=== PATIENT | female | born 1955 | race Two or more races ===

== ENCOUNTER 2019-08-12 23:12 | Inpatient (IN) | payer OTHER, MEDICAID ==
[~2019-08-12] VITALS: Ht 157.5 cm; Wt 83.6 kg
[~2019-08-12 23:12] MED LIST: AMLO5TAB9 PO; DIVA500T52 PO; HYDR28.45 TP; OLAN10TA3 PO; PANT40TA25 PO
[2019-08-12 23:55] LABS: BASOPHILS % (AUTO) 0.2 % (0.0-2.0); EOSINOPHILS % (AUTO) 0.2 % (1.0-6.0); HEMOGLOBIN 11.9 g/dL (12.0-16.0); LYMPHOCYTES # (AUTO) 2.7 K/uL (1.0-4.8); LYMPHOCYTES % (AUTO) 37.6 % (22.0-44.0); MEAN CORPUSCULAR HEMOGLOBIN 34.2 pg (26.0-34.0); MEAN CORPUSCULAR VOLUME 98 fL (80-100); MONOCYTES # (AUTO) 0.7 K/uL (0.1-1.0); MONOCYTES % (AUTO) 9.5 % (2.0-9.0); NEUTROPHILS # (AUTO) 3.8 K/uL (1.8-7.7); NEUTROPHILS % (AUTO) 52.5 % (40.0-70.0); PLATELET COUNT (AUTO) 194 K/uL (150-450); RED BLOOD CELL COUNT(AUTO) 3.48 MIL/uL (4.00-5.20); RED CELL DISTRIBUTION WIDTH 12.6 % (11.5-14.5)
[2019-08-13 00:17] LABS: ANION GAP 9 mmol/L (8-16); CALCIUM, TOTAL 9.3 mg/dL (8.8-10.5); CARBON DIOXIDE 27 mmol/L (22-29); CHLORIDE 107 mmol/L (98-107); GLOMERULAR FILTR. RATE CALC 27 mL/min (>60); GLUCOSE,RANDOM 105 mg/dL (70-110); SODIUM SERUM 143 mmol/L (136-145); UREA NITROGEN, BLOOD 46 mg/dL (7-18)
[2019-08-13 00:23] LABS: ALANINE AMINOTRANSFERASE 17 U/L (12-78); ALBUMIN 3.9 g/dL (3.4-5.0); ALKALINE PHOSPHATASE 101 U/L (46-116); ASPARTATE AMINOTRANSFERASE 11 U/L (15-37); BILIRUBIN,TOTAL 0.3 mg/dL (0.1-1.0); TOTAL PROTEIN, SERUM 6.9 g/dL (6.4-8.2)
[2019-08-13] MEDS ORDERED: DIVA125SP PO (01:00)
[2019-08-13] MEDS ORDERED: PROP20TA18 PO (01:00)
[2019-08-13] MEDS ORDERED: RISP3 PO (01:00)
[2019-08-13] MEDS ORDERED: DIPH50 PO (01:00)
[2019-08-13] MEDS ORDERED: OLANZapine 5 MG RAPDIS TABLET PO PRN (02:00)
[2019-08-13 03:42] LABS: AMPHET/METH SCREEN,URINE NEGATIVE (NEGATIVE); BARBITURATE SCREEN, URINE NEGATIVE (NEGATIVE); BENZODIAZEPINES SCREEN,URINE NEGATIVE (NEGATIVE); CANNABINOID SCREEN,URINE NEGATIVE (NEGATIVE); COCAINE SCREEN,URINE NEGATIVE (NEGATIVE); METHADONE SCREEN, URINE NEGATIVE (NEGATIVE); OPIATE SCREEN,URINE NEGATIVE (NEGATIVE)
[2019-08-13 03:43] LABS: PHENCYCLIDINE SCREEN,URINE NEGATIVE (NEGATIVE)
[2019-08-13 04:50] LABS: APPEARANCE,URINE CLOUDY (CLEAR); GLUCOSE, URINE (UA) NEGATIVE (NEGATIVE); KETONES,URINE TRACE mg/dL (NEGATIVE); LEUKOCYTE ESTERASE ,URINE MODERATE (NEGATIVE); NITRATE,URINE NEGATIVE (NEGATIVE); OCCULT BLOOD,URINE NEGATIVE (NEGATIVE); PROTEIN,URINE SEE CONFIRM (NEGATIVE); UROBILINOGEN,URINE 0.2 mg/dL (<=1.0)
[2019-08-13 04:53] LABS: BILIRUBIN,URINE PRELIM. POSITIVE (NEGATIVE)
[2019-08-13 05:11] LABS: RBC,URINE 0-2 /HPF (0-2)
[2019-08-13 05:12] LABS: BACTERIA,URINE Rare /HPF (None Seen); CALCIUM OXALATE CRYSTALS,UR Moderate /LPF (None Seen); SQUAMOUS EPITHELIAL CELL,UR Few /LPF (None Seen); SULFOSALICYLIC ACID,URINE 1+ (Negative)
[2019-08-13 06:09] VITALS: BP 124/77
[2019-08-13 08:20] VITALS: BP 100/55
[2019-08-13] MEDS ORDERED: DIVA-78 PO (10:51)
[2019-08-13] MEDS: CEPHALEXIN MONOHYDRATE 500 MG CAPSULE PO SCH ×2 (13:13→16:53)
[2019-08-13] MEDS ORDERED: PROMETHAZINE HCL 25 MG TABLET PO PRN (15:15)
[2019-08-13] MEDS ORDERED: MAGNESIUM HYDROXIDE SUSPENSION 30 ML UDCUP PO PRN (15:15)
[2019-08-13] MEDS ORDERED: HydrOXYzine PAMOATE 50 MG CAPSULE PO PRN (15:15)
[2019-08-13] MEDS ORDERED: MAG HYDROX/AL HYDROX/SIMETH ES 30 ML SUSPENSION UDCUP PO PRN (15:15)
[2019-08-13] MEDS ORDERED: LOPERAMIDE HCL 2 MG CAPSULE PO PRN (15:15)
[2019-08-13] MEDS ORDERED: TUBERCULIN, PURIFIED PROTEIN DERIVATIVE 5 TU/0.1 ML SYRINGE ID ONE (15:15)
[2019-08-13 16:14] VITALS: BP 109/73
[2019-08-13] MEDS: THIAMINE HCL 100 MG TABLET PO SCH (16:53)
[2019-08-13] MEDS ORDERED: OLANZapine 5 MG RAPDIS TABLET PO SCH (21:00)
[2019-08-13] MEDS: DIVALPROEX SODIUM 500 MG ER TABLET PO SCH (21:11)
[2019-08-13] MEDS: GuaiFENesin/D-METHORPHAN [SUGAR-FREE] 200-20MG/10 ML SYRUP UDCUP PO PRN (23:16)
[2019-08-14 00:27] VITALS: BP 116/60
[2019-08-14 08:09] LABS: HEMOGLOBIN A1C 6.5 % (4.5-6.2)
[2019-08-14 08:15] VITALS: BP 122/73
[2019-08-14 08:24] LABS: ALBUMIN 3.4 g/dL (3.4-5.0); BILIRUBIN,TOTAL 0.2 mg/dL (0.1-1.0); CALCIUM, TOTAL 8.7 mg/dL (8.8-10.5); CHOL/HDL RATIO 2.6 (3.9-5.7); FREE T4 (FREE THYROXINE) 1.15 ng/dL (0.76-1.46); POTASSIUM 4.4 mmol/L (3.5-5.1); THYROID STIMULATING HORMONE 0.59 uIU/mL (0.36-3.74); TOTAL PROTEIN, SERUM 6.2 g/dL (6.4-8.2)
[2019-08-14 08:31] LABS: BASOPHILS % (AUTO) 0.3 % (0.0-2.0); EOSINOPHILS % (AUTO) 0.6 % (1.0-6.0); HEMOGLOBIN 12.1 g/dL (12.0-16.0); LYMPHOCYTES % (AUTO) 43.3 % (22.0-44.0); MEAN CORPUSCULAR HEMOGLOBIN 33.9 pg (26.0-34.0); MEAN CORPUSCULAR HGB CONC 34.7 G/dL (31.0-37.0); MEAN CORPUSCULAR VOLUME 98 fL (80-100); MONOCYTES # (AUTO) 0.5 K/uL (0.1-1.0); MONOCYTES % (AUTO) 7.6 % (2.0-9.0); NEUTROPHILS # (AUTO) 3.3 K/uL (1.8-7.7); NEUTROPHILS % (AUTO) 48.2 % (40.0-70.0); PLATELET COUNT (AUTO) 190 K/uL (150-450); RED BLOOD CELL COUNT(AUTO) 3.58 MIL/uL (4.00-5.20); RED CELL DISTRIBUTION WIDTH 12.6 % (11.5-14.5)
[2019-08-14] MEDS: MULTIVITAMINS WITH MINERALS, THERAPEUTIC TABLET PO SCH (08:52)
[2019-08-14] MEDS: FOLIC ACID 1 MG TABLET PO SCH (08:52)
[2019-08-14] MEDS: CEPHALEXIN MONOHYDRATE 500 MG CAPSULE PO SCH ×3 (08:52→16:06)
[2019-08-14] MEDS: THIAMINE HCL 100 MG TABLET PO SCH ×2 (08:52→16:06)
[2019-08-14] MEDS: GuaiFENesin/D-METHORPHAN [SUGAR-FREE] 200-20MG/10 ML SYRUP UDCUP PO PRN (09:26)
[2019-08-14] MEDS: LORazepam 2 MG TABLET PO PRN (11:28)
[2019-08-14 16:06] VITALS: BP 115/83
[2019-08-14] MEDS: DIVALPROEX SODIUM 500 MG ER TABLET PO SCH (20:37)
[2019-08-14] MEDS: OLANZapine 10 MG RAPDIS TABLET PO SCH (20:40)
[2019-08-15] MEDS: ZOLPIDEM TARTRATE 10 MG TABLET PO PRN ×2 (03:00→21:34)
[2019-08-15 04:59] VITALS: BP 112/80
[2019-08-15] MEDS: CEPHALEXIN MONOHYDRATE 500 MG CAPSULE PO SCH ×3 (08:19→16:25)
[2019-08-15] MEDS: THIAMINE HCL 100 MG TABLET PO SCH ×2 (08:19→16:25)
[2019-08-15] MEDS: FOLIC ACID 1 MG TABLET PO SCH (08:19)
[2019-08-15] MEDS: MULTIVITAMINS WITH MINERALS, THERAPEUTIC TABLET PO SCH (08:19)
[2019-08-15 08:21] VITALS: BP 140/68
[2019-08-15] MEDS: GuaiFENesin/D-METHORPHAN [SUGAR-FREE] 200-20MG/10 ML SYRUP UDCUP PO PRN ×2 (08:30→13:20)
[2019-08-15 10:30] VITALS: BP 134/78
[2019-08-15] MEDS: ACETAMINOPHEN 325 MG TABLET PO PRN (14:49)
[2019-08-15 16:06] VITALS: BP 131/88
[2019-08-15] MEDS: OLANZapine 10 MG RAPDIS TABLET PO SCH (20:20)
[2019-08-15] MEDS: DIVALPROEX SODIUM 500 MG ER TABLET PO SCH (20:20)
[2019-08-16 05:00] VITALS: BP 112/73
[2019-08-16 08:05] VITALS: BP 120/82
[2019-08-16] MEDS: THIAMINE HCL 100 MG TABLET PO SCH ×2 (08:12→16:37)
[2019-08-16] MEDS: CEPHALEXIN MONOHYDRATE 500 MG CAPSULE PO SCH ×3 (08:12→16:37)
[2019-08-16] MEDS: MULTIVITAMINS WITH MINERALS, THERAPEUTIC TABLET PO SCH (08:12)
[2019-08-16] MEDS: FOLIC ACID 1 MG TABLET PO SCH (08:12)
[2019-08-16] MEDS: LORazepam 2 MG TABLET PO PRN ×2 (08:19→12:26)
[2019-08-16] MEDS: GuaiFENesin/D-METHORPHAN [SUGAR-FREE] 200-20MG/10 ML SYRUP UDCUP PO PRN (08:19)
[2019-08-16 16:00] VITALS: BP 125/89
[2019-08-16] MEDS: DIVALPROEX SODIUM 500 MG ER TABLET PO SCH (20:10)
[2019-08-16] MEDS: OLANZapine 10 MG RAPDIS TABLET PO SCH (20:11)
[2019-08-17 05:01] VITALS: BP 115/74
[2019-08-17 05:05] VITALS: BP 100/72
[2019-08-17] MEDS: GuaiFENesin/D-METHORPHAN [SUGAR-FREE] 200-20MG/10 ML SYRUP UDCUP PO PRN ×3 (05:36→18:07)
[2019-08-17] MEDS: ACETAMINOPHEN 325 MG TABLET PO PRN (06:42)
[2019-08-17 08:16] VITALS: BP 134/96
[2019-08-17] MEDS: CEPHALEXIN MONOHYDRATE 500 MG CAPSULE PO SCH ×3 (08:26→16:16)
[2019-08-17] MEDS: FOLIC ACID 1 MG TABLET PO SCH (08:26)
[2019-08-17] MEDS: THIAMINE HCL 100 MG TABLET PO SCH ×2 (08:26→16:16)
[2019-08-17] MEDS: MULTIVITAMINS WITH MINERALS, THERAPEUTIC TABLET PO SCH (08:26)
[2019-08-17 16:00] VITALS: BP 148/89
[2019-08-17] MEDS: DIVALPROEX SODIUM 500 MG ER TABLET PO SCH (20:09)
[2019-08-17] MEDS: OLANZapine 10 MG RAPDIS TABLET PO SCH (20:09)
[2019-08-17] MEDS: ATORVASTATIN CALCIUM 10 MG TABLET PO SCH (20:56)
[2019-08-18 04:24] VITALS: BP 128/92
[2019-08-18] MEDS: LEVOTHYROXINE SODIUM 75 MCG TABLET PO SCH (06:46)
[2019-08-18] MEDS: CEPHALEXIN MONOHYDRATE 500 MG CAPSULE PO SCH ×2 (08:01→13:00)
[2019-08-18] MEDS: ENALAPRIL MALEATE 2.5 MG TABLET PO SCH (08:01)
[2019-08-18] MEDS: MULTIVITAMINS WITH MINERALS, THERAPEUTIC TABLET PO SCH (08:02)
[2019-08-18] MEDS: THIAMINE HCL 100 MG TABLET PO SCH ×2 (08:02→16:00)
[2019-08-18] MEDS: HYDROCHLOROTHIAZIDE 25 MG TABLET PO SCH (08:02)
[2019-08-18] MEDS: FOLIC ACID 1 MG TABLET PO SCH (08:02)
[2019-08-18 08:17] VITALS: BP 136/99
[2019-08-18] MEDS: GuaiFENesin/D-METHORPHAN [SUGAR-FREE] 200-20MG/10 ML SYRUP UDCUP PO PRN ×3 (09:26→18:53)
[2019-08-18] MEDS: ACETAMINOPHEN 325 MG TABLET PO PRN (09:26)
[2019-08-18] MEDS: LORazepam 2 MG TABLET PO PRN (15:55)
[2019-08-18 16:08] VITALS: BP 118/75
[2019-08-18] MEDS: ATORVASTATIN CALCIUM 10 MG TABLET PO SCH (20:36)
[2019-08-18] MEDS: DIVALPROEX SODIUM 500 MG ER TABLET PO SCH (20:36)
[2019-08-18] MEDS: ZOLPIDEM TARTRATE 10 MG TABLET PO PRN (20:37)
[2019-08-18] MEDS: OLANZapine 10 MG RAPDIS TABLET PO SCH (20:37)
[2019-08-19 05:10] VITALS: BP 112/68
[2019-08-19] MEDS: LEVOTHYROXINE SODIUM 75 MCG TABLET PO SCH (06:27)
[2019-08-19] MEDS: GuaiFENesin/D-METHORPHAN [SUGAR-FREE] 200-20MG/10 ML SYRUP UDCUP PO PRN ×3 (06:29→20:41)
[2019-08-19 08:24] VITALS: BP 119/73
[2019-08-19] MEDS: THIAMINE HCL 100 MG TABLET PO SCH ×2 (08:41→16:52)
[2019-08-19] MEDS: MULTIVITAMINS WITH MINERALS, THERAPEUTIC TABLET PO SCH (08:42)
[2019-08-19] MEDS: ENALAPRIL MALEATE 2.5 MG TABLET PO SCH (08:42)
[2019-08-19] MEDS: HYDROCHLOROTHIAZIDE 25 MG TABLET PO SCH (08:42)
[2019-08-19] MEDS: FOLIC ACID 1 MG TABLET PO SCH (08:42)
[2019-08-19 16:13] VITALS: BP 119/77
[2019-08-19] MEDS: DIVALPROEX SODIUM 500 MG ER TABLET PO SCH (20:40)
[2019-08-19] MEDS: OLANZapine 10 MG RAPDIS TABLET PO SCH (20:40)
[2019-08-19] MEDS: ATORVASTATIN CALCIUM 10 MG TABLET PO SCH (20:40)
[2019-08-19] MEDS ORDERED: MULT-1239 PO (22:45)
[2019-08-19] MEDS ORDERED: ENAL2.5T50 PO (22:45)
[2019-08-19] MEDS ORDERED: HYDR25TA PO (22:45)
[2019-08-19] MEDS ORDERED: OLAN10TA6 PO (22:45)
[2019-08-19] MEDS ORDERED: FOLI0.4T14 PO (22:45)
[2019-08-19] MEDS ORDERED: ATOR10TA84 PO (22:45)
[2019-08-19] MEDS ORDERED: THIA100T75 PO (22:45)
[2019-08-19] MEDS ORDERED: LEVO125T95 PO (22:45)
[2019-08-20] MEDS: ZOLPIDEM TARTRATE 10 MG TABLET PO PRN (00:07)
[2019-08-20 05:30] VITALS: BP 101/68
[2019-08-20] MEDS: LEVOTHYROXINE SODIUM 75 MCG TABLET PO SCH (06:11)
[2019-08-20 08:16] VITALS: BP 111/82
[2019-08-20] MEDS: GuaiFENesin/D-METHORPHAN [SUGAR-FREE] 200-20MG/10 ML SYRUP UDCUP PO PRN (08:35)
[2019-08-20] MEDS: THIAMINE HCL 100 MG TABLET PO SCH (08:35)
[2019-08-20] MEDS: MULTIVITAMINS WITH MINERALS, THERAPEUTIC TABLET PO SCH (08:35)
[2019-08-20] MEDS: FOLIC ACID 1 MG TABLET PO SCH (08:35)
[2019-08-20] MEDS: HYDROCHLOROTHIAZIDE 25 MG TABLET PO SCH (08:35)
[2019-08-20] MEDS: ENALAPRIL MALEATE 2.5 MG TABLET PO SCH (08:35)
== END 2019-08-20 12:45 | disposition home or self-care (01) | DRG 885 ==
LOC: EMS 23:12 → B3A 08-13 02:52
PROVIDERS: ADMIT Psychiatry & Neurology Psychiatry; ATTEND Psychiatry & Neurology Psychiatry
DX: F25.9 Schizoaffective disorder, unspecified (principal); N39.0 Urinary tract infection, site not specified; N17.9 Acute kidney failure, unspecified; D64.9 Anemia, unspecified; I10 Essential (primary) hypertension; F41.0 Panic disorder [episodic paroxysmal anxiety]; J30.9 Allergic rhinitis, unspecified; K21.9 Gastro-esophageal reflux disease without esophagitis; R45.87 Impulsiveness; Z87.891 Personal history of nicotine dependence; Z90.710 Acquired absence of both cervix and uterus; Z90.721 Acquired absence of ovaries, unilateral; Z91.19 Patient's noncompliance with other medical treatment and regimen
CPT/HCPCS: 83036; 84439; 84443; 86592; 87086; G0480